=== PATIENT | female | born 1950 | race Hispanic/Latino ===

== ENCOUNTER 2018-08-23 13:09 | Emergency (ER) | payer BC, OTHER ==
[2018-08-23 14:50] LABS: Absolute Lymphocytes (CBC) 1.2 K/uL (0.7-4.9); Absolute Monocytes 0.7 K/uL (0.1-1.3); Absolute Neutrophil 3.3 K/uL (1.8-8.0); Basophils % 0.9 % (0-1.3); Eosinophils % 3.7 % (0-4.4); Hematocrit 29.2 % (36.0-45.0); Lymphocytes % 21.8 % (15.3-44.8); MPV 6.3 fL (7.6-11.3); Monocytes % 13.4 % (3.3-12.3); RBC Red Blood Cell Count 3.65 M/uL (3.86-4.86)
[2018-08-23 14:51] LABS: Protime INR 1.27
[2018-08-23 15:09] LABS: ALT/SGPT 17 U/L (12-78); AST/SGOT 25 U/L (15-37); Albumin 2.3 g/dL (3.4-5.0); Alkaline Phosphatase 98 U/L (45-117); BUN Blood Urea Nitrogen 10 mg/dL (7-18); Bicarbonate 30 mmol/L (21-32); Bilirubin Direct 0.2 mg/dL (0-0.2); Bilirubin Total 0.4 mg/dL (0.2-1.0); Glucose Level 99 mg/dL (74-106); Magnesium 1.7 mg/dL (1.8-2.4); NT PRO-BNP 210 pg/mL (<125); Potassium 3.6 mmol/L (3.5-5.1); Protein, Total 6.2 g/dL (6.4-8.2); Sodium Level 137 mmol/L (136-145); Troponin (Emerg Dept Use Only) < 0.02 ng/mL (0.0-0.045)
--- NOTE | 2018-08-23 15:23 | RAD REPORT ---
EXAM DESCRIPTION: Philippe Single View08/23/2018 3:08 pm CLINICAL HISTORY: Chest pain COMPARISON: none FINDINGS: The left lung base is hazy. Right lung appears clear. The heart is normal size IMPRESSION: Left lung base is hazy suspicious for pneumonia
[2018-08-23] MEDS ORDERED: CEFTRIAXONE/SWI 1gm 1 GM/10 ML SYR ONE (17:14)
[2018-08-23] MEDS ORDERED: VANCOMYCIN/NS 1 gm 1 GM/250 ML BAG IVPB ONE (17:15)
--- NOTE | 2018-08-23 17:22 | EKG ---
Test Date: 2018-08-23 Test Time: 14:43:32 Mortgage Advisor: ESTEFANY MEASUREMENT RESULTS: Intervals: Rate: 100 [place]: 138 QRSD: 66 QT: 324 QTc: 417 [place]: P: 58 [place]: 138 QRS: 56 T: 30 INTERPRETIVE STATEMENTS: Normal sinus rhythm Low voltage QRS Borderline ECG No previous ECG available for comparison Electronically Signed On 08-23-18 17:21:25 BOTTLED BEVERAGE INSPECTOR by Segundo Barkley
[2018-08-23 17:59] LABS: CKMB Creatine Kinase MB 1.8 ng/mL (0.3-3.6); Creatine Phosphokinase 64 U/L (26-192); Lipase 43 U/L (73-393)
[2018-08-23] MEDS ORDERED: HYDROCODONE/APAP 10/325 TAB ONE (18:05)
[2018-08-23 18:18] LABS: Urine Bacteria <20 /HPF (<20)
[2018-08-23 18:19] LABS: Urine Culture Reflex Order NOT NEEDED
[2018-08-23 18:20] LABS: Urine Mucus 2+ /HPF (NONE SEEN)
--- NOTE | 2018-08-23 18:51 | ER ---
Nurse's Notes [facility] Name: Angelique Mcbride Age: 67 yrs Sex: Female : 1950 Arrival Date: 08/23/2018 Time: 13:11 Bed 8 Private MD: Shahid De Souza Diagnosis: Weakness Presentation: 08/23 13:29 Presenting complaint: Malaise, loss of appetite, upper abdominal pain, and nausea x 4 hb days. Pt reports she has stage 4 endometrial CA, doing chemo, was seen at [facility] yesterday for same s/s, instructed to come to this ED because they did not have any beds. Transition of care: patient was not received from another setting of care. Onset of symptoms was August 20, 2018. Risk Assessment: Do you want to hurt yourself or someone else? Patient reports no desire to harm self or others. Care prior to arrival: None. 13:29 Method Of Arrival: Wheelchair hb 13:29 Acuity: PETAR 3 hb 14:10 Initial Sepsis Screen: Does the patient meet any 2 criteria? HR > 90 bpm. No. Patient's pc1 initial sepsis screen is negative. Does the patient have a suspected source of infection?. Triage Assessment: 14:00 General: Appears uncomfortable, ill, Behavior is calm, cooperative, Reports fatigue for pc1 past week. Pain: Complains of pain in abdomen Pain does not radiate. Pain currently is 2 out of 10 on a pain scale. Quality of pain is described as dull, Is continuous, Alleviated by medications, Aggravated by increased activity. GI: Abdomen is round. Historical: - Allergies: 13:33 No Known Allergies; hb - Home Meds: 14:00 Tramadol Oral [Active]; Cipro Oral [Active]; Zofran Oral [Active]; pc1 - PMHx: 14:00 Cancer; UTI; pc1 - Immunization history:: Adult Immunizations unknown. - Social history:: Smoking status: Patient/guardian denies using tobacco, never smoked, Patient/guardian denies using. - Ebola Screening: : Patient negative for fever greater than or equal to 101.5 degrees Fahrenheit, and additional compatible Ebola Virus Disease symptoms Patient denies exposure to infectious person Patient denies travel to an Ebola-affected area in the 21 days before illness onset No symptoms or risks identified at this time. Screenin:09 Abuse screen: Denies threats or abuse. Denies injuries from another. Nutritional pc1 screening: No deficits noted. Tuberculosis screening: No symptoms or risk factors identified. Fall Risk None identified. Assessment: 14:05 Reassessment: See triage notes. General: Appears uncomfortable, ill, Behavior is calm, pc1 cooperative. Pain: Complains of pain in abdomen Pain does not radiate. Pain currently is 2 out of 10 on a pain scale. GI: Abd is soft Abdomen is tender to palpation in left upper quadrant Reports upper abdominal pain. 15:05 Reassessment: Patient and/or family updated on plan of care and expected duration. Pain hj level reassessed. Patient is alert, oriented x 3, equal unlabored respirations, skin warm/dry/pink. 16:00 Reassessment: Patient and/or family updated on plan of care and expected duration. Pain hj level reassessed. Patient is alert, oriented x 3, equal unlabored respirations, skin warm/dry/pink. family in room;. 17:00 Reassessment: Patient and/or family updated on plan of care and expected duration. Pain hj level reassessed. Patient is alert, oriented x 3, equal unlabored respirations, skin warm/dry/pink. awaiting antibiotics to be finished and POC;. 17:45 Reassessment: Patient and/or family updated on plan of care and expected duration. Pain hj level reassessed. Patient is alert, oriented x 3, equal unlabored respirations, skin warm/dry/pink. family asking if pt be admitted; to wait for results and asked MD;. 19:07 Reassessment: Patient appears in no apparent distress at this time. No changes from jd3 previously documented assessment. Patient and/or family updated on plan of care and expected duration. Pain level reassessed. Patient is alert, oriented x 3, equal unlabored respirations, skin warm/dry/pink. awaiting IV medication to infuse before discharge. Vital Signs: 13:32 BP 104 / 62; Pulse 110; Resp 18; Temp 100.2; Pulse Ox 97% on R/A; Pain 2/10; hb 14:06 BP 102 / 64; Pulse 104; Resp 14; Temp 99.8; Pulse Ox 96% on R/A; Weight 69 kg; Height 5 pc1 ft. 2 in. (157.48 cm); Pain 2/10; 14:41 BP 105 / 64; Pulse 102; Resp 18; Pulse Ox 98% on R/A; hj 16:00 BP 107 / 60; Pulse 100; Resp 18; Pulse Ox 96% on R/A; hj 17:28 BP 104 / 68; Pulse 98; Resp 18; Pulse Ox 96% on R/A; hj 18:23 BP 107 / 63; Pulse 103; Resp 18; Pulse Ox 94% on R/A; hj 19:08 BP 97 / 55; Pulse 100; Resp 20 S; Pulse Ox 95% on R/A; jd3 14:06 Body Mass Index 27.82 (69.00 kg, 157.48 cm) pc1 ED Course: 13:11 Patient arrived in ED. rg4 13:12 Shahid De Souza MD is Private Physician. rg4 13:32 Triage completed. hb 13:32 Arm band placed on. hb 13:37 Nathen Luo RN is Primary Nurse. hj 14:09 Patient has correct armband on for positive identification. Placed in gown. Bed in low pc1 position. Call light in reach. Side rails up X2. Adult w/ patient. Warm blanket given. 14:09 Inserted saline lock: 20 gauge in right antecubital area, using aseptic technique. pc1 14:49 EKG done, by medical supply technician. reviewed by Sundar Fraga MD. sm3 15:08 XRAY Chest (1 view) In Process Unspecified. EDMS 16:12 Sundar Fraga MD is Attending Physician. kdr 18:50 Shahid De Souza MD is Referral Physician. kdr 19:21 Praneeth Doherty RN is Primary Nurse. jd3 19:21 No provider procedures requiring assistance completed. IV discontinued, intact, jd3 bleeding controlled, No redness/swelling at site. Pressure dressing applied. Administered Medications: 17:05 Drug: Rocephin - (cefTRIAXone) 1 grams Route: IVPB; Infused Over: 30 mins; Site: left hj antecubital; 19:30 Follow up: Response: No adverse reaction; IV Status: Completed infusion jd3 17:26 Drug: vancoMYCIN 1 grams Route: IVPB; Infused Over: 2 hrs; Site: left antecubital; hj 19:30 Follow up: Response: No adverse reaction; IV Status: Completed infusion jd3 Point of Care Testing: Blood Glucose: 16:52 Blood Glucose: 113 mg/dL; pc1 Ranges: Outcome: 18:51 Discharge ordered by MD. kdr 19:21 Discharged to home via wheelchair, with family. jd3 19:21 Condition: stable 19:21 Discharge instructions given to patient, family, Instructed on discharge instructions, follow up and referral plans. medication usage, Demonstrated understanding of instructions, follow-up care, medications, Prescriptions given X 3. 19:31 Patient left the ED. jd3 Signatures: Dispatcher [employer] EDMS Sundar Fraga MD MD kdr Nathen Luo, RN RN hj Christy Jacobs RN RN Zuleyma Adams rg4 Praneeth Doherty RN RN Katiana Yee 3 Jonathan Madden pc1 Corrections: (The following items were deleted from the chart) 14:05 14:00 Pain: Complains of pain in abdomen Pain does not radiate. Pain currently is 7 out pc1 of 10 on a pain scale. Quality of pain is described as crampy, dull, Is continuous, Alleviated by medications, Aggravated by increased activity, pc1
--- NOTE | 2018-08-23 18:51 | EDPHYS ---
Physician Documentation [facility] Name: Angelique Mcbride Age: 67 yrs Sex: Female : 1950 Arrival Date: 08/23/2018 Time: 13:11 Bed 8 Private MD: Shahid De Souza ED Physician Sundar Fraga HPI: 08/24 07:25 This 67 yrs old Female presents to ER via Wheelchair with complaints of Sent kdr by [facility]-Failure to Thrive. 07:25 The patient has been to [facility] twice this week for weakness and concern that she may kdr become too weak to continue on her current cancer regimen. According to the SO, this there last hope for treatment. She has been more tired and not eating and growing weaker. Onset: The symptoms/episode began/occurred gradually, at an unknown time. Severity of symptoms: At their worst the symptoms were mild in the emergency department the symptoms are unchanged. The patient has experienced similar episodes in the past, chronically, Since beginning cancer treatment. The patient has been recently seen by a physician:. Historical: - Allergies: 08/23 13:33 No Known Allergies; hb - Home Meds: 14:00 Tramadol Oral [Active]; Cipro Oral [Active]; Zofran Oral [Active]; pc1 - PMHx: 14:00 Cancer; UTI; pc1 - Immunization history:: Adult Immunizations unknown. - Social history:: Smoking status: Patient/guardian denies using tobacco, never smoked, Patient/guardian denies using. - Ebola Screening: : Patient negative for fever greater than or equal to 101.5 degrees Fahrenheit, and additional compatible Ebola Virus Disease symptoms Patient denies exposure to infectious person Patient denies travel to an Ebola-affected area in the 21 days before illness onset No symptoms or risks identified at this time. ROS: 08/24 07:25 Constitutional: Negative for fever, chills, and weight loss, Eyes: Negative for injury, kdr pain, redness, and discharge, ENT: Negative for injury, pain, and discharge, Neck: Negative for injury, pain, and swelling, Cardiovascular: Negative for chest pain, palpitations, and edema, Respiratory: Negative for shortness of breath, cough, wheezing, and pleuritic chest pain, Back: Negative for injury and pain, : Negative for injury, bleeding, discharge, and swelling, MS/Extremity: Negative for injury and deformity, Skin: Negative for injury, rash, and discoloration, Neuro: Negative for headache, weakness, numbness, tingling, and seizure activity. Psych: Negative for depression, anxiety, suicide ideation, homicidal ideation, and hallucinations, Allergy/Immunology: Negative for hives, rash, and allergies, Endocrine: Negative for neck swelling, polydipsia, polyuria, polyphagia, and marked weight changes, Hematologic/Lymphatic: Negative for swollen nodes, abnormal bleeding, and unusual bruising. Abdomen/GI: Positive for abdominal pain, nausea and vomiting. Abdomen/GI: Positive for Poor appetite. Neuro: Positive for weakness. Exam: 07:25 Constitutional: This is a well developed, well nourished patient who is awake, alert, kdr and in no acute distress. Head/Face: Normocephalic, atraumatic. Eyes: Pupils equal round and reactive to light, extra-ocular motions intact. Lids and lashes normal. Conjunctiva and sclera are non-icteric and not injected. Cornea within normal limits. Periorbital areas with no swelling, redness, or edema. Neck: Trachea midline, no thyromegaly or masses palpated, and no cervical lymphadenopathy. Supple, full range of motion without nuchal rigidity, or vertebral point tenderness. No Meningismus. Chest/axilla: Normal chest wall appearance and motion. Nontender with no deformity. No lesions are appreciated. Cardiovascular: Regular rate and rhythm with a normal S1 and S2. No gallops, murmurs, or rubs. Normal PMI, no JVD. No pulse deficits. Respiratory: Lungs have equal breath sounds bilaterally, clear to auscultation and percussion. No rales, rhonchi or wheezes noted. No increased work of breathing, no retractions or nasal flaring. Abdomen/GI: Soft, non-tender, with normal bowel sounds. No distension or tympany. No guarding or rebound. No evidence of tenderness throughout. Back: No spinal tenderness. No costovertebral tenderness. Full range of motion. Skin: Warm, dry with normal turgor. Normal color with no rashes, no lesions, and no evidence of cellulitis. MS/ Extremity: Pulses equal, no cyanosis. Neurovascular intact. Full, normal range of motion. Neuro: Awake and alert, GCS 15, oriented to person, place, time, and situation. Cranial nerves II-XII grossly intact. Motor strength 5/5 in all extremities. Sensory grossly intact. Cerebellar exam normal. Normal gait. Psych: Awake, alert, with orientation to person, place and time. Behavior, mood, and affect are within normal limits. Vital Signs: 08/23 13:32 BP 104 / 62; Pulse 110; Resp 18; Temp 100.2; Pulse Ox 97% on R/A; Pain 2/10; hb 14:06 BP 102 / 64; Pulse 104; Resp 14; Temp 99.8; Pulse Ox 96% on R/A; Weight 69 kg; Height 5 pc1 ft. 2 in. (157.48 cm); Pain 2/10; 14:41 BP 105 / 64; Pulse 102; Resp 18; Pulse Ox 98% on R/A; hj 16:00 BP 107 / 60; Pulse 100; Resp 18; Pulse Ox 96% on R/A; hj 17:28 BP 104 / 68; Pulse 98; Resp 18; Pulse Ox 96% on R/A; hj 18:23 BP 107 / 63; Pulse 103; Resp 18; Pulse Ox 94% on R/A; hj 19:08 BP 97 / 55; Pulse 100; Resp 20 S; Pulse Ox 95% on R/A; jd3 14:06 Body Mass Index 27.82 (69.00 kg, 157.48 cm) pc1 MDM: 18:38 ED course: The patient states that she has had a persistent shadow in the Left base kdr which is most likely what is being seen on the current CXR. 18:51 Patient medically screened. kdr 08/24 07:25 Data reviewed: vital signs, nurses notes, lab test result(s), radiologic studies. kdr Counseling: I had a detailed discussion with the patient and/or guardian regarding: the historical points, exam findings, and any diagnostic results supporting the discharge/admit diagnosis, lab results, radiology results, the need for outpatient follow up. Special discussion: Based on the patient's Hx, exam, and Dx evaluation, there is no indication for emergent surgery or inpatient Tx. It is understood by the patient/guardian that if the Sx's persist or worsen they need to return immediately for re-evaluation. I discussed with the patient/guardian in detail that at this point there is no indication for admission to the hospital. It is understood, however, that if the symptoms persist or worsen the patient needs to return immediately for re-evaluation. 08/23 14:32 Order name: Basic Metabolic Panel; Complete Time: 18:25 iw 08/23 14:32 Order name: CBC with Diff; Complete Time: 16:13 iw 08/23 14:32 Order name: LFT's; Complete Time: 18:25 iw 08/23 14:32 Order name: Magnesium; Complete Time: 18:25 iw 08/23 14:32 Order name: NT PRO-BNP; Complete Time: 18:25 iw 08/23 14:32 Order name: PT-INR; Complete Time: 16:13 iw 08/23 14:32 Order name: Troponin (emerg Dept Use Only); Complete Time: 18:25 08/23 16:14 Order name: Blood Culture Adult (2) [facility] 08/23 16:14 Order name: Lactate; Complete Time: 18:25 [facility] 08/23 16:14 Order name: Procalcitonin; Complete Time: 18:25 [facility] 08/23 16:14 Order name: Ptt, Activated; Complete Time: 17:12 [facility] 08/23 14:32 Order name: XRAY Chest (1 view); Complete Time: 16:13 08/23 14:32 Order name: EKG; Complete Time: 14:33 08/23 14:32 Order name: Cardiac monitoring; Complete Time: 14:32 iw 08/23 14:32 Order name: EKG - Nurse/Tech; Complete Time: 14:45 08/23 14:32 Order name: IV Saline Lock; Complete Time: 14:32 08/23 14:32 Order name: Labs collected and sent; Complete Time: 14:32 iw 08/23 14:32 Order name: O2 Per Protocol; Complete Time: 14:32 iw 08/23 14:32 Order name: O2 Sat Monitoring; Complete Time: 14:33 iw 08/23 16:14 Order name: Urine Microscopic Only; Complete Time: 18:25 kdr 08/23 16:14 Order name: Accucheck; Complete Time: 16:59 [facility] 08/23 16:31 Order name: Creatine Phosphokinase; Complete Time: 18:25 EDMS 08/23 16:31 Order name: CKMB Creatine Kinase MB; Complete Time: 18:25 EDMS 08/23 16:31 Order name: Lipase; Complete Time: 18:25 EDAZ 08/23 17:15 Order name: Urine Dipstick--Ancillary (enter results) bd 08/23 16:14 Order name: IV Saline Lock - Large Bore; Complete Time: 16:18 kdr 08/23 16:14 Order name: Urine Dipstick-Ancillary (obtain specimen); Complete Time: 18:50 kdr Administered Medications: 08/23 17:05 Drug: Rocephin - (cefTRIAXone) 1 grams Route: IVPB; Infused Over: 30 mins; Site: left antecubital; 19:30 Follow up: Response: No adverse reaction; IV Status: Completed infusion jd3 17:26 Drug: vancoMYCIN 1 grams Route: IVPB; Infused Over: 2 hrs; Site: left antecubital; 19:30 Follow up: Response: No adverse reaction; IV Status: Completed infusion jd3 Point of Care Testing: Blood Glucose: 16:52 Blood Glucose: 113 mg/dL; pc1 Ranges: Critical Glucose Levels:Adult <50 mg/dl or >400 mg/dl <40 mg/dl or >180 mg/dl Disposition: 08/23/18 18:51 Discharged to Home. Impression: Weakness. - Condition is Stable. - Discharge Instructions: Fatigue, Weakness, [id number]. - Prescriptions for Bentyl 20 mg Oral Tablet - take 1 tablet by ORAL route every 6 hours As needed; 20 tablet. Carafate 1 gram Oral Tablet - take 1 tablet by ORAL route 4 times per day take on an empty stomach, beginning on waking and last dose at bedtime; 100 tablet. Zofran 4 mg Oral Tablet - take 1 tablet by ORAL route every 12 hours As needed; 6 tablet. - Medication Reconciliation Form, Thank You Letter form. - Follow up: Shahid De Souza MD; When: 2 - 3 days; Reason: If symptoms return, Further diagnostic work-up, Recheck today's complaints, Continuance of care, Re-evaluation by your physician. - Problem is an ongoing problem. - Symptoms have improved. Signatures: Dispatcher [employer] [facility] Sundar Fraga MD MD [facility] Catia Davila RN RN Nathen Luo RN RN Christy Jacobs RN RN hb Davies, Jonathon, RN RN jd3 Cantu, Patrick pc1 Corrections: (The following items were deleted from the chart) 16:30 16:15 CKMB+C.LAB.BRZ ordered. EDAZ EDMS 16:30 16:15 CREATINE PHOSPHOKINASE+C.LAB.BRZ ordered. EDAZ EDMS 16:30 16:15 LIPASE+C.LAB.BRZ ordered. EDAZ EDMS 19:31 18:51 08/23/2018 18:51 Discharged to Home. Impression: Weakness. Condition is Stable. jd3 Forms are Medication Reconciliation Form, Thank You Letter, Antibiotic Education, Prescription Opioid Use. Follow up: Shahid De Souza; When: 2 - 3 days; Reason: If symptoms return, Further diagnostic work-up, Recheck today's complaints, Continuance of care, Re-evaluation by your physician. Problem is an ongoing problem. Symptoms have improved. kdr
[2018-08-23 21:14] LABS: Urine Blood TRACE (NEG); Urine Glucose NEGATIVE (NEG); Urine Protein 1+ (NEG); Urine pH 7.5 (5.0-7.0)
== END 2018-08-23 19:31 | disposition home or self-care (01) ==
LOC: ER 13:09
DX: R53.1 Weakness (principal); D07.0 Carcinoma in situ of endometrium
CPT/HCPCS: 96365; 93005; 87040 ×2; 85025; 80048; 36415; 83735; 82550; 85610; 82962; 80076; 83605; 85730; 84484; 82553; 83690; 84145; 83880; 71045; 99284; J3370; J0696; 81003; 81015